=== PATIENT | female | born 1980 | race Two or more races ===

== ENCOUNTER 2017-10-12 07:56 | Outpatient (CLI) | payer OTHER | END 2017-10-12 08:08 | disposition home or self-care (01) | LOC: SONOGRAMA 07:56 | DX: E04.1 Nontoxic single thyroid nodule (principal) ==

== ENCOUNTER 2019-06-20 22:39 | Emergency (ER) | payer OTHER ==
[~2019-06-20] VITALS: Ht 157.5 cm; Wt 102.1 kg
[2019-06-20] MEDS ORDERED: PRENATE ELITE1 EAC2 (23:00)
== END 2019-06-21 02:48 | disposition home or self-care (01) ==
LOC: ER 22:39
DX: O20.8 Other hemorrhage in early pregnancy (principal); Z34.01 Encounter for supervision of normal first pregnancy, first trimester

== ENCOUNTER → 2019-06-28 | Outpatient (CLI) | payer OTHER ==
[~2019-06-28] MED LIST: PRENATE ELITE1 EAC2
== END | disposition home or self-care (01) ==
LOC: PRENATAL 13:41
DX: O34.11 Maternal care for benign tumor of corpus uteri, first trimester (principal); O09.511 Supervision of elderly primigravida, first trimester; O36.80X1 Pregnancy with inconclusive fetal viability, fetus 1; O99.211 Obesity complicating pregnancy, first trimester; Z3A.13 13 weeks gestation of pregnancy; O65.5 Obstructed labor due to abnormality of maternal pelvic organs

== ENCOUNTER → 2019-08-15 | Outpatient (CLI) | payer OTHER | END | disposition home or self-care (01) | LOC: PRENATAL 13:00 | DX: O09.512 Supervision of elderly primigravida, second trimester (principal); O36.80X1 Pregnancy with inconclusive fetal viability, fetus 1; O34.12 Maternal care for benign tumor of corpus uteri, second trimester; O99.212 Obesity complicating pregnancy, second trimester ==

== ENCOUNTER → 2019-08-27 | Outpatient (CLI) | payer OTHER | END | disposition home or self-care (01) | LOC: PRENATAL 11:23 | DX: O26.842 Uterine size-date discrepancy, second trimester (principal); O09.512 Supervision of elderly primigravida, second trimester; O99.212 Obesity complicating pregnancy, second trimester ==

== ENCOUNTER → 2019-10-22 | Outpatient (CLI) | payer OTHER | END | disposition home or self-care (01) | LOC: PRENATAL 13:30 | DX: O26.843 Uterine size-date discrepancy, third trimester (principal); O99.213 Obesity complicating pregnancy, third trimester; O09.513 Supervision of elderly primigravida, third trimester; Z36.89 Encounter for other specified antenatal screening ==

== ENCOUNTER 2019-12-09 13:25 | Inpatient (IN) | payer OTHER ==
[~2019-12-09] VITALS: Ht 170.2 cm; Wt 96.6 kg
[2019-12-09] MEDS ORDERED: ASA81 MG PO (17:46)
[2019-12-09] MEDS ORDERED: IRON325 MG PO (17:46)
== END 2019-12-10 16:36 | disposition home or self-care (01) | DRG 833 ==
LOC: OBS/DEL 13:25 → LDR 17:01 → SURH 17:01
PROVIDERS: ADMIT Obstetrics & Gynecology; ATTEND Obstetrics & Gynecology
PROC: 4A12X4Z Monitoring of Cardiac Electrical Activity, External Approach (ICD-10-PCS; principal; 2019-12-09)
PROC: 4A0HXFZ Measurement of Products of Conception, Cardiac Rhythm, External Approach (ICD-10-PCS; 2019-12-09)
DX: O99.013 Anemia complicating pregnancy, third trimester (principal); O99.213 Obesity complicating pregnancy, third trimester; D64.9 Anemia, unspecified; R42 Dizziness and giddiness; E66.9 Obesity, unspecified; Z86.79 Personal history of other diseases of the circulatory system

== ENCOUNTER 2019-12-19 07:45 | Inpatient (IN) | payer OTHER ==
[~2019-12-19] VITALS: Ht 170.2 cm; Wt 107.0 kg
[~2019-12-19 07:45] MED LIST changes: +ASA81 MG PO; +IRON325 MG PO
== END 2019-12-26 13:47 | DRG 786 ==
LOC: O/R 12-23 06:44 → SURG-SUITE 12-23 06:44 → LDR 12-23 07:45 → OB/GYN 12-23 07:45 → LDR 12-23 10:45 → SURG-SUITE 12-23 19:51
PROVIDERS: ADMIT Obstetrics & Gynecology; ATTEND Obstetrics & Gynecology
PROC: 4A0HXFZ Measurement of Products of Conception, Cardiac Rhythm, External Approach (ICD-10-PCS; 2019-12-23)
PROC: 10D00Z1 Extraction of Products of Conception, Low, Open Approach (ICD-10-PCS; principal; 2019-12-23 10:45)
DX: O82 Encounter for cesarean delivery without indication (principal); O99.42 Diseases of the circulatory system complicating childbirth; I48.91 Unspecified atrial fibrillation; Z3A.38 38 weeks gestation of pregnancy; Z37.0 Single live birth; Z20.828 Contact with and (suspected) exposure to other viral communicable diseases